=== PATIENT | female | born 1980 | race Caucasian/White ===

== ENCOUNTER 2017-07-22 17:11 | Emergency (ER) | payer MEDICARE, OTHER ==
[~2017-07-22] VITALS: Ht 165.1 cm; Wt 79.4 kg
[~2017-07-22 17:11] MED LIST: LEVE100020 PO; LORA2TAB89 PO
--- NOTE | 2017-07-22 17:35 | PHYS DOC ---
Past Medical History Past Medical History: Anxiety, Other Additional Past Medical Histor: epilepsy, panic attacks Past Surgical History: Tubal ligation, Other Additional Past Surgical Histo: shoulder surgery Alcohol Use: Occasionally Drug Use: Marijuana Adult General Chief Complaint Chief Complaint: RIB PAIN [facility] HPI Patient is a 36 year old female presents to the emergency department stating that she has having left lateral rib pain and discomfort. She states she has increased pain when taking a deep breath. She has not taken anything for pain or discomfort. She's had the pain for the last week. She states that she went to her primary care physician yesterday she states they did a urine on her which was positive for blood denies any urinary tract infection. Patient states that she has increased pain with taking a deep breath. She does not appear to be in any respiratory distress at the current time. Review of Systems Review of Systems Constitutional: Denies fever or chills [] Eyes: Denies change in visual acuity, redness, or eye pain [] HENT: Denies nasal congestion or sore throat [] Respiratory: Denies cough or shortness of breath. Complaint of left lateral rib pain. Cardiovascular: No additional information not addressed in HPI [] GI: Denies abdominal pain, nausea, vomiting, bloody stools or diarrhea [] : Denies dysuria or hematuria [] Musculoskeletal: Denies back pain or joint pain [] Integument: Denies rash or skin lesions [] Neurologic: Denies headache, focal weakness or sensory changes [] Endocrine: Denies polyuria or polydipsia [] Current Medications Current Medications Current Medications Medications (Trade) Dose Ordered Sig/Pia Start Time Stop Time Status Last Admin Dose Admin Fentanyl Citrate (Fentanyl 2ml Vial) 50 mcg PRN Q15MIN PRN 07/22/17 19:30 07/23/17 19:29 07/22/17 21:58 50 MCG Ibuprofen (Motrin) 800 mg 1X ONCE 07/22/17 18:00 07/22/17 18:01 DC 07/22/17 17:42 800 MG Info (Do NOT chart on this entry -- for MONITORING) 1 each PRN DAILY PRN 07/22/17 18:00 07/24/17 17:59 Iohexol (Omnipaque 300 Mg/ml) 75 ml 1X ONCE 07/22/17 18:30 07/22/17 18:31 DC 07/22/17 19:03 75 ML Levofloxacin/ Dextrose 100 ml @ 100 mls/hr 1X ONCE 07/22/17 19:45 07/22/17 20:44 DC 07/22/17 19:38 100 MLS/HR Allergies Allergies Allergies Coded Allergies Type Severity Reaction Last Updated Verified Penicillins Allergy Intermediate rash 02/21/14 Yes lorazepam Adverse Reaction Intermediate nausea 02/21/14 Yes Physical Exam Physical Exam Constitutional: Well developed, well nourished, no acute distress, non-toxic appearance. [] HENT: Normocephalic, atraumatic, bilateral external ears normal, oropharynx moist, no oral exudates, nose normal. [] Eyes: PERRLA, EOMI, conjunctiva normal, no discharge. [] Neck: Normal range of motion, no tenderness, supple, no stridor. [] Cardiovascular:Heart rate regular rhythm, no murmur [] Lungs & Thorax: Bilateral breath sounds clear to auscultation. No discoloration noted no step-offs noted in the rib area no crepitus is no deformities noted. Patient with equal chest expansion noted. Skin: Warm, dry, no erythema, no rash. [] Back: No tenderness, no CVA tenderness. [] Extremities: No tenderness, no cyanosis, no clubbing, ROM intact, no edema. [] Neurologic: Alert and oriented X 3, normal motor function, normal sensory function, no focal deficits noted. [] Psychologic: Affect normal, judgement normal, mood normal. [] Current Patient Data Vital Signs Vital Signs Date Time Temp Pulse Resp B/P (MAP) Pulse Ox O2 Delivery O2 Flow Rate FiO2 07/22/17 21:58 Room Air 07/22/17 21:53 64 18 127/71 (89) 95 07/22/17 17:39 98.2 98.2 Lab Values Laboratory Tests Test 07/22/17 17:20 07/22/17 17:23 07/22/17 18:03 Urine Collection Type Unknown Urine Color Yellow Urine Clarity Clear Urine pH 6.0 Urine Specific [place] <=1.005 Urine Protein Negative mg/dL (NEG-TRACE) Urine Glucose (UA) Negative mg/dL (NEG) Urine Ketones (Stick) Negative mg/dL (NEG) Urine Blood Negative (NEG) Urine Nitrite Negative (NEG) Urine Bilirubin Negative (NEG) Urine Urobilinogen Dipstick 0.2 mg/dL (0.2 mg/dL) Urine Leukocyte Esterase Negative (NEG) Urine RBC Rare /HPF (0-2) Urine WBC 0 /HPF (0-4) Urine Squamous Epithelial Cells Few /LPF Urine Bacteria 0 /HPF (0-FEW) Urine Yeast Present /HPF POC Urine HCG, Qualitative Hcg negative (Negative) White Blood Count 26.8 x10^3/uL (4.0-11.0) H Red Blood Count 4.85 x10^6/uL (3.50-5.40) Hemoglobin 14.5 g/dL (12.0-15.5) Hematocrit 43.0 % (36.0-47.0) Mean Corpuscular Volume 89 fL (79-100) Mean Corpuscular Hemoglobin 30 pg (25-35) Mean Corpuscular Hemoglobin Concent 34 g/dL (31-37) Red Cell Distribution Width 14.3 % (11.5-14.5) Platelet Count 433 x10^3/uL (140-400) H Neutrophils (%) (Auto) 86 % (31-73) H Lymphocytes (%) (Auto) 8 % (24-48) L Monocytes (%) (Auto) 5 % (0-9) Eosinophils (%) (Auto) 1 % (0-3) Basophils (%) (Auto) 1 % (0-3) Neutrophils # (Auto) 22.9 x10^3uL (1.8-7.7) H Lymphocytes # (Auto) 2.2 x10^3/uL (1.0-4.8) Monocytes # (Auto) 1.3 x10^3/uL (0.0-1.1) H Eosinophils # (Auto) 0.3 x10^3/uL (0.0-0.7) Basophils # (Auto) 0.1 x10^3/uL (0.0-0.2) Segmented Neutrophils % 79 % (35-66) H Band Neutrophils % 1 % (0-9) Lymphocytes % 7 % (24-48) L Atypical Lymphocytes % (Manual) 1 % (0-0) H Monocytes % 7 % (0-10) Eosinophils % 3 % (0-5) Basophils % 2 % (0-3) Platelet Estimate Increased (ADEQUATE) Sodium Level 139 mmol/L (136-145) Potassium Level 3.7 mmol/L (3.5-5.1) Chloride Level 103 mmol/L (98-107) Carbon Dioxide Level 26 mmol/L (21-32) Anion Gap 10 (6-14) Blood Urea Nitrogen 9 mg/dL (7-20) Creatinine 0.7 mg/dL (0.6-1.0) Estimated GFR (Cockcroft-Gault) 94.2 BUN/Creatinine Ratio 13 (6-20) Glucose Level 103 mg/dL (70-99) H Calcium Level 8.9 mg/dL (8.5-10.1) Total Bilirubin 0.1 mg/dL (0.2-1.0) L Aspartate Amino Transferase (AST) 15 U/L (15-37) Alanine Aminotransferase (ALT) 21 U/L (14-59) Alkaline Phosphatase 113 U/L (46-116) Total Protein 7.7 g/dL (6.4-8.2) Albumin 3.7 g/dL (3.4-5.0) Albumin/Globulin Ratio 0.9 (1.0-1.7) L Laboratory Tests 07/22/17 18:03 Laboratory Tests 07/22/17 18:03 EKG EKG [] Radiology/Procedures Radiology/Procedures [facility] [address] [address] IMAGING REPORT Signed PATIENT: ANDRA LARSEN ACCOUNT: [id number] : 1980 LOCATION: ER AGE: 36 SEX: F EXAM STATUS: REG ER ORD. PHYSICIAN: GILMA FOX APRN REASON: R/o PE, left chest pain with SOA PROCEDURE: CT ANGIOGRAPHY CHEST EXAM: CT angiography of the chest with intravenous contrast. HISTORY: Right-sided chest pain. TECHNIQUE: Computed tomographic images of the chest were obtained following the administration of 75 cc Omnipaque 300 intravenous contrast according to angiography protocol. Multiplanar reformatting was performed and 3-dimensional maximum intensity projection images were obtained. *One or more of the following individualized dose reduction techniques were utilized for this examination: 1. Automated exposure control. 2. Adjustment of the mA and/or kV according to patient size. 3. Use of iterative reconstruction technique. COMPARISON: None. FINDINGS: Evaluation for pulmonary embolism is significantly limited due to suboptimal contrast opacification of the pulmonary arteries. No central embolism is seen. However, the possibility of a segmental or subsegmental embolism is not excluded on this exam. The aorta is normal in caliber. There is a standard aortic arch branching pattern. There is soft tissue density within the anterior mediastinum likely due to residual thymus. No pathologically enlarged lymph node is seen. There is no pneumothorax. There is minimal apical predominant emphysema. There is bilateral lower lobe atelectasis or infiltrate with a trace left pleural effusion. There is lingular and right middle lobe atelectasis or scarring. The upper abdomen is unremarkable. There is no suspicious osseous lesion. There is a mild chronic appearing compression fracture with superior endplate Schmorl's node at T5. There are few additional chronic mild thoracic superior endplate depressions. IMPRESSION: 1. Limited evaluation for pulmonary embolism due to suboptimal contrast opacification of the pulmonary arteries. No central embolism is seen. 2. Bilateral lower lobe atelectasis or interstitial infiltrate with trace left pleural fluid. 3. Lingular and right middle lobe atelectasis or scarring. Electronically signed by: Lizzy Meadows MD (07/22/2017 7:06 PM) [facility] DICTATED and SIGNED BY: LIZZY MEADOWS MD DATE: 07/22/171902 CC: ZULMA NORTON; GILMA FOX APRN; NON,STAFF ~ []\ [facility] [address] [place] [address] IMAGING REPORT Signed PATIENT: ANDRA LARSEN ACCOUNT: [id number] : 1980 LOCATION: ER AGE: 36 SEX: F EXAM STATUS: REG ER ORD. PHYSICIAN: GILMA OFX APRN REASON: r/o PE , left rib pain SOA PROCEDURE: LUNG VENT/PERFUSION SCAN(VQ) EXAM: Pulmonary ventilation-perfusion scan. HISTORY: Chest pain. TECHNIQUE: Anterior projection ventilation images of the chest were obtained during the inhalation of 20 mCi Xe-133 gas. Anterior, posterior, bilateral oblique and bilateral lateral images of the chest were obtained following the administration of 5 mCi Tc-99m MAA. COMPARISON: Chest radiograph obtained on the same date. FINDINGS: The ventilation images demonstrate symmetric acute lesion appreciated within both lungs. There is no tracer retention. The perfusion images demonstrate no perfusion defect or ventilation-perfusion mismatch to suggest pulmonary embolus. IMPRESSION: Negative for pulmonary embolus. Electronically signed by: Lizzy Meadows MD (07/22/2017 9:59 PM) [facility] DICTATED and SIGNED BY: LIZZY MEADOWS MD DATE: 07/22/172157 CC: ZULMA NORTON; GILMA FOX APRN; NON,STAFF ~ Course & Med Decision Making Course & Med Decision Making Pertinent Labs and Imaging studies reviewed. (See chart for details) Spoke with Dr Castle in regards to ribs and chest x-ray he states she has fluid with fissure noted to the left lower lobe as well as stool noted in the upper abd. Patient has stated she has had diarrhea within the last 24 hours. Last normal BM 1 month ago. Perc score 0. [address] Castle regards to CT results. He is recommending a VQ scan at this time as the CT scan was unable to completely rule out a PE. He also recommended starting Levaquin due to the patient having an elevated white count. Spoke with the patient and provided her with results of the CT scan as well as having an elevated white count. She is being provided with pain medication fentanyl. She is also be providing the Levaquin as she was informed. Patient agrees with the treatment regimen at this time. 2225 VQ scan was negative for any DVTs. Patient was offered admission into the hospital with patient refusing. Patient will be discharged home on Levaquin with recommendations to follow-up with her primary care physician in the next 3- 5 days. Patient will also be encouraged to use ibuprofen and Tylenol for pain and discomfort warm moist packs to the chest wall area. Signs and symptoms to return back to emergency department as been provided. All questions and concerns been answered at patient's bedside. Patient agrees with discharge instructions, treatment regimens and follow-up recommendations. [] Dragon Disclaimer Dragon Disclaimer This electronic medical record was generated, in whole or in part, using a voice recognition dictation system. Departure Departure Impression: Primary Impression: CAP (community acquired pneumonia) Disposition: 01 HOME, SELF-CARE Condition: STABLE Referrals: ZULMA NORTON (PCP) Patient Instructions: Pneumonia, Adult, [id number] Additional Instructions: Activity as tolerated. Medications as prescribed. Tylenol or ibuprofen for pain and discomfort. Warm moist packs to the chest wall area. Drink plenty of fluids. Follow-up to primary care physician in the next 3-5 days. Return back to emergency prior signs symptoms of become worse. Scripts Levofloxacin (LEVAQUIN) 500 Mg Tablet 1 TAB PO DAILY, #7 TAB Prov: GILMA FOX APRN 07/22/17 Problem Qualifiers Primary Impression: CAP (community acquired pneumonia) Laterality: left Lung location: unspecified part of lung Qualified Codes: J18.9 - Pneumonia, unspecified organism GILMA FOX APRN Jul 22, 2017 17:35
[2017-07-22 17:52] LABS: BILIRUBIN,URINE NEGATIVE (NEG); GLUCOSE,URINE NEGATIVE (NEG); NITRITE,URINE NEGATIVE (NEG); PROTEIN,URINE NEGATIVE (NEG-TRACE); UROBILINOGEN,URINE 0.2 mg/dL (0.2 mg/dL)
[2017-07-22] MEDS ORDERED: CONTRAST GIVEN MC PRN (18:00)
[2017-07-22] MEDS ORDERED: IBUPROFEN 800 MG TABLET. PO ONE (18:00)
[2017-07-22 18:13] LABS: BACTERIA,URINE 0 /HPF (0-FEW); RBC,URINE RARE /HPF (0-2); SQUAMOUS EPITHELIAL CELL,UR FEW /LPF; WBC,URINE 0 /HPF (0-4); YEAST,URINE PRESENT /HPF
[2017-07-22] MEDS ORDERED: fentaNYL PF VIAL 100 MCG/2 ML VIAL IV ONE (18:15)
[2017-07-22 18:28] LABS: BASO # 0.1 x10^3/uL (0.0-0.2); BASO % 1 % (0-3); EOS % 1 % (0-3); HEMOGLOBIN 14.5 g/dL (12.0-15.5); LYMPH # 2.2 x10^3/uL (1.0-4.8); LYMPH % 8 % (24-48); MEAN CORPUSCULAR HEMOGLOBIN 30 pg (25-35); MEAN CORPUSCULAR HGB CONC 34 g/dL (31-37); MEAN CORPUSCULAR VOLUME 89 fL (79-100); MONO % 5 % (0-9); NEUT % 86 % (31-73); PLATELET COUNT 433 x10^3/uL (140-400); RED BLOOD COUNT 4.85 x10^6/uL (3.50-5.40); RED CELL DISTRIBUTION WIDTH 14.3 % (11.5-14.5); WHITE BLOOD COUNT 26.8 x10^3/uL (4.0-11.0)
[2017-07-22] MEDS ORDERED: IOHEXOL 300 MG/ML 75 ML VIAL IV ONE (18:30)
[2017-07-22 18:35] LABS: CALCIUM 8.9 mg/dL (8.5-10.1); CREATININE 0.7 mg/dL (0.6-1.0); GFR 94.2; POTASSIUM 3.7 mmol/L (3.5-5.1)
[2017-07-22 18:41] LABS: ALBUMIN 3.7 g/dL (3.4-5.0); ALBUMIN/GLOBULIN RATIO 0.9 (1.0-1.7); TOTAL BILIRUBIN 0.1 mg/dL (0.2-1.0); TOTAL PROTEIN 7.7 g/dL (6.4-8.2)
--- NOTE | 2017-07-22 19:09 | RAD ---
EXAM: CT angiography of the chest with intravenous contrast. HISTORY: Right-sided chest pain. TECHNIQUE: Computed tomographic images of the chest were obtained following the administration of 75 cc Omnipaque 300 intravenous contrast according to angiography protocol. Multiplanar reformatting was performed and 3-dimensional maximum intensity projection images were obtained. *One or more of the following individualized dose reduction techniques were utilized for this examination: 1. Automated exposure control. 2. Adjustment of the mA and/or kV according to patient size. 3. Use of iterative reconstruction technique. COMPARISON: None. FINDINGS: Evaluation for pulmonary embolism is significantly limited due to suboptimal contrast opacification of the pulmonary arteries. No central embolism is seen. However, the possibility of a segmental or subsegmental embolism is not excluded on this exam. The aorta is normal in caliber. There is a standard aortic arch branching pattern. There is soft tissue density within the anterior mediastinum likely due to residual thymus. No pathologically enlarged lymph node is seen. There is no pneumothorax. There is minimal apical predominant emphysema. There is bilateral lower lobe atelectasis or infiltrate with a trace left pleural effusion. There is lingular and right middle lobe atelectasis or scarring. The upper abdomen is unremarkable. There is no suspicious osseous lesion. There is a mild chronic appearing compression fracture with superior endplate Schmorl's node at T5. There are few additional chronic mild thoracic superior endplate depressions. IMPRESSION: 1. Limited evaluation for pulmonary embolism due to suboptimal contrast opacification of the pulmonary arteries. No central embolism is seen. 2. Bilateral lower lobe atelectasis or interstitial infiltrate with trace left pleural fluid. 3. Lingular and right middle lobe atelectasis or scarring. Electronically signed by: Lizzy Rosales MD (07/22/2017 7:06 PM) [place] [id number]
[2017-07-22 19:12] LABS: % BASOS 2 % (0-3); % EOS 3 % (0-5); PLT ESTIMATE INCREASED (ADEQUATE)
[2017-07-22] MEDS: fentaNYL PF VIAL 100 MCG/2 ML VIAL IV PRN ×2 (19:36→21:58)
--- NOTE | 2017-07-22 22:01 | RAD ---
EXAM: Pulmonary ventilation-perfusion scan. HISTORY: Chest pain. TECHNIQUE: Anterior projection ventilation images of the chest were obtained during the inhalation of 20 mCi Xe-133 gas. Anterior, posterior, bilateral oblique and bilateral lateral images of the chest were obtained following the administration of 5 mCi Tc-99m MAA. COMPARISON: Chest radiograph obtained on the same date. FINDINGS: The ventilation images demonstrate symmetric acute lesion appreciated within both lungs. There is no tracer retention. The perfusion images demonstrate no perfusion defect or ventilation-perfusion mismatch to suggest pulmonary embolus. IMPRESSION: Negative for pulmonary embolus. Electronically signed by: Lizzy Rosales MD (07/22/2017 9:59 PM) [facility]
[2017-07-22] MEDS ORDERED: LEVO500T59 PO (22:27)
[2017-07-22 22:29] VITALS: BP 98/62
--- NOTE | 2017-07-23 08:30 | RAD ---
KUB Clinical Indication: diarrhea recently no normal BM x 1 month Comparison: None. Findings: Moderate to large amount of colonic stool. No evidence of obstruction. No obvious free air. No abnormal calcifications. No acute osseous abnormality. IMPRESSION: Moderate to large amount of colonic stool. No evidence of obstruction.
--- NOTE | 2017-07-23 08:35 | RAD ---
RIBS LEFT AND PA CHEST Clinical Indication: left rib pain with radiation of pain Comparison: None. Findings: Low lung volume. Bibasilar atelectasis. Left lower lung zone linear opacity likely related to atelectasis versus scarring. No focal consolidation. Normal pulmonary vasculature. Apparent borderline cardiomegaly likely accentuated due to low lung volume and portable technique. The great vessels thorax are normal. No acute osseous abnormality. No displaced rib fracture. IMPRESSION: 1. Bibasilar atelectasis. No focal consolidation. 2. Apparent borderline cardiomegaly likely accentuated due to low lung volume and portable technique. 3. No displaced rib fracture.
== END 2017-07-22 22:35 | disposition home or self-care (01) ==
LOC: ER 17:11
DX: J18.9 Pneumonia, unspecified organism (principal); G40.909 Epilepsy, unspecified, not intractable, without status epilepticus; Z98.51 Tubal ligation status
CPT/HCPCS: 36415; 71101; 71275; 74000; 78582; 80053; 81001; 81025; 85007; 85025; 96365; 96374; 96375; 96376; 99285; A9540; A9558; J1956; J3010; Q9967

== ENCOUNTER 2021-04-07 00:41 | Emergency (ER) | payer MEDICAID, MEDICARE, OTHER ==
[~2021-04-07] VITALS: Ht 165.1 cm; Wt 59.1 kg
[~2021-04-07 00:41] MED LIST changes: +LEVO500T59 PO
[2021-04-07 01:04] LABS: BASO # 0.1 x10^3/uL (0.0-0.2); BASO % 1 % (0-3); EOS # 0.2 x10^3/uL (0.0-0.7); EOS % 2 % (0-3); HEMATOCRIT 38.7 % (36.0-47.0); HEMOGLOBIN 13.1 g/dL (12.0-15.5); LYMPH # 1.5 x10^3/uL (1.0-4.8); LYMPH % 13 % (24-48); MEAN CORPUSCULAR HEMOGLOBIN 30 pg (25-35); MEAN CORPUSCULAR HGB CONC 34 g/dL (31-37); MEAN CORPUSCULAR VOLUME 88 fL (79-100); MONO % 9 % (0-9); NEUT # 8.8 x10^3/uL (1.8-7.7); NEUT % 76 % (31-73); PLATELET COUNT 362 x10^3/uL (140-400); RED CELL DISTRIBUTION WIDTH 14.3 % (11.5-14.5); WHITE BLOOD COUNT 11.6 x10^3/uL (4.0-11.0)
[2021-04-07 01:18] LABS: CALCIUM 8.5 mg/dL (8.5-10.1); CREATININE 0.8 mg/dL (0.6-1.0); POTASSIUM 3.8 mmol/L (3.5-5.1)
[2021-04-07 01:21] LABS: ACETAMIN < 2 mcg/ml (10-30); ALBUMIN 3.4 g/dL (3.4-5.0); ETHANOL < 10 mg/dL (0-10); SALIC 5.7 mg/dL (2.8-20.0); TOTAL BILIRUBIN 0.4 mg/dL (0.2-1.0); TOTAL PROTEIN 6.7 g/dL (6.4-8.2)
[2021-04-07 01:29] LABS: BARBITURATES NEG (NEG); BENZODIAZEPINES POS (NEG); CANNABINOIDS POS (NEG); COCAINE NEG (NEG); METHADONE NEG (NEG); OPIATES NEG (NEG); PHENCYCLIDINE NEG (NEG)
[2021-04-07 01:30] LABS: AMPHETAMINE/METHAMPHETAMINE NEG (NEG)
--- NOTE | 2021-04-07 01:49 | PHYS DOC ---
Past Medical History Past Medical History: Anxiety, Kidney Stone, UTI, Other Additional Past Medical Histor: epilepsy, panic attacks, PTSD Past Surgical History: Tubal ligation, Other Additional Past Surgical Histo: shoulder surgery Smoking Status: Never Smoker Alcohol Use: Occasionally Drug Use: Marijuana General Adult EDM: Chief Complaint: SUICDAL IDEATION HPI: HPI: Patient is a 40 year old female with past medical history of anxiety depression and seizure disorder presents for evaluation after suicide attempt. Patient states due to recent buildup of stress related to living situation and illness of her grandfather she attempted suicide by overdose and cutting. Patient took a knife and cut her bilateral wrists and overdose her prescription Klonopin. Patient states around 2315 hrs. she took 15 to 20 tablets of her 1 mg Klonopin. Patient currently denies SI and HI. Patient states she was previously admitted to a psychiatric facility in 2004 after an attempted overdose on Ambien. Patient has lacerations bilateral wrist right wrist measures 6 cm left wrist measures 6 mm. Wound examined there does not appear to be any tendinous injury. Review of Systems: Review of Systems: Review of systems: Constitutional symptoms- No fever, no chills. Eyes- No Discharge, No Visual Loss Respiratory symptoms- No shortness of breath, No wheezing, No Dyspnea on Exertion Cardiovascular Systems; No chest pain, No Palpitations, No syncope Gastrointestinal symptoms: NO abdominal pain, no nausea, no vomiting or diarrhea. Genitourinary symptoms: No dysuria. Musculoskeletal symptoms: No back pain No extremity pain. NEUROLOGICAL Symptoms: No headache, no generalized weakness; No focal Weakness Skin: No rash. Positive laceration Psych denies suicidal ideation no homicidal ideation Heart Score: C/O Chest Pain: N/A Risk Factors: Risk Factors: DM, Current or recent (<one month) smoker, HTN, HLP, family history of CAD, obesity. Risk Scores: Score 0 - 3: 2.5% MACE over next 6 weeks - Discharge Home Score 4 - 6: 20.3% MACE over next 6 weeks - Admit for Clinical Observation Score 7 - 10: 72.7% MACE over next 6 weeks - Early Invasive Strategies Allergies: Allergies: Allergies Coded Allergies Type Severity Reaction Last Updated Verified Penicillins Allergy Intermediate rash 02/21/14 Yes lorazepam Adverse Reaction Intermediate nausea 02/21/14 Yes Physical Exam: PE: General: alert, no acute distress. Skin: warm, dry and intact. HENT: bilateral external ears normal, oropharynx moist, nose normal. Head:: Normocephalic, atraumatic. Neck: Trachea midline. Eyes: EOMI, Normal conjunctiva, No drainage CARDIOVASCULAR: Regular rate and rhythm RESPIRATORY: No respiratory distress Back: Full range of motion. Skin: Warm, dry, no erythema, no rash. Bilateral wrist laceration 6 cm in length longitudinal over wrist MUSCULOSKELETAL: Full range of motion of bilateral upper and lower extremities. GASTROINTESTINAL: Abdomen soft without rebound or guarding. NEUROLOGICAL: Alert and noted to person, place and time. No neurological deficits observed Psychiatric: Cooperative. Normal judgment currently denies HI or SI Current Patient Data: Labs: Laboratory Tests Test 04/07/21 00:58 04/07/21 01:15 04/07/21 01:17 White Blood Count 11.6 x10^3/uL (4.0-11.0) H Red Blood Count 4.40 x10^6/uL (3.50-5.40) Hemoglobin 13.1 g/dL (12.0-15.5) Hematocrit 38.7 % (36.0-47.0) Mean Corpuscular Volume 88 fL (79-100) Mean Corpuscular Hemoglobin 30 pg (25-35) Mean Corpuscular Hemoglobin Concent 34 g/dL (31-37) Red Cell Distribution Width 14.3 % (11.5-14.5) Platelet Count 362 x10^3/uL (140-400) Neutrophils (%) (Auto) 76 % (31-73) H Lymphocytes (%) (Auto) 13 % (24-48) L Monocytes (%) (Auto) 9 % (0-9) Eosinophils (%) (Auto) 2 % (0-3) Basophils (%) (Auto) 1 % (0-3) Neutrophils # (Auto) 8.8 x10^3/uL (1.8-7.7) H Lymphocytes # (Auto) 1.5 x10^3/uL (1.0-4.8) Monocytes # (Auto) 1.0 x10^3/uL (0.0-1.1) Eosinophils # (Auto) 0.2 x10^3/uL (0.0-0.7) Basophils # (Auto) 0.1 x10^3/uL (0.0-0.2) Sodium Level 137 mmol/L (136-145) Potassium Level 3.8 mmol/L (3.5-5.1) Chloride Level 102 mmol/L (98-107) Carbon Dioxide Level 26 mmol/L (21-32) Anion Gap 9 (6-14) Blood Urea Nitrogen 13 mg/dL (7-20) Creatinine 0.8 mg/dL (0.6-1.0) Estimated GFR (Cockcroft-Gault) 79.0 BUN/Creatinine Ratio 16 (6-20) Glucose Level 92 mg/dL (70-99) Calcium Level 8.5 mg/dL (8.5-10.1) Total Bilirubin 0.4 mg/dL (0.2-1.0) Aspartate Amino Transferase (AST) 16 U/L (15-37) Alanine Aminotransferase (ALT) 16 U/L (14-59) Alkaline Phosphatase 92 U/L (46-116) Total Protein 6.7 g/dL (6.4-8.2) Albumin 3.4 g/dL (3.4-5.0) Albumin/Globulin Ratio 1.0 (1.0-1.7) Salicylates Level 5.7 mg/dL (2.8-20.0) Salicylate Last Dose Date Unk Salicylate Last Dose Time Unk Acetaminophen Level < 2 mcg/ml (10-30) L Acetaminophen Last Dose Date Unk Acetaminophen Last Dose Time Unk Ethyl Alcohol Level < 10 mg/dL (0-10) Urine Opiates Screen Neg (NEG) Urine Methadone Screen Neg (NEG) Urine Barbiturates Neg (NEG) Urine Phencyclidine Screen Neg (NEG) Urine Amphetamine/Methamphetamine Neg (NEG) Urine Benzodiazepines Screen Pos (NEG) Urine Cocaine Screen Neg (NEG) Urine Cannabinoids Screen Pos (NEG) Urine Ethyl Alcohol Neg (NEG) POC Urine HCG, Qualitative Hcg negative (Negative) Laboratory Tests 04/07/21 00:58 Laboratory Tests 04/07/21 00:58 Vital Signs: Vital Signs Date Time Temp Pulse Resp B/P (MAP) Pulse Ox O2 Delivery O2 Flow Rate FiO2 04/07/21 01:23 98.5 16 107/62 (77) 99 Room Air 98.5 04/07/21 00:41 75 EKG: EKG: [] Radiology/Procedures: Radiology/Procedures: [] Course & Med Decision Making: Course & Med Decision Making Pertinent Labs and Imaging studies reviewed. (See chart for details) Procedure- Local anesthesia of bilateral wrist with let and 5 cc 1% lidocaine. Right wrist laceration 6 cm in length Wound explored no foreign bodies identified no active bleeding no tendon involvement 8 simple interrupted 6.0 nylon sutures placed no complications Left wrist laceration 6 cm in length Wound explored no foreign bodies identified no active bleeding no tendon involvement 8 simple interrupted 6.0 nylon sutures placed no complications Patient received Percocet for pain. Tetanus was updated. [] Patient was evaluated by PAT team. Patient is remorseful she currently denies any homicidal or suicidal ideations. Recommendation for discharge home with care plan. I am agreeable to this plan. Patient seems remorseful. Patient calm and cooperative. Dragon Disclaimer: Abraham Disclaimer: This electronic medical record was generated, in whole or in part, using a voice recognition dictation system. Departure Departure Impression: Primary Impression: Suicide attempt by cutting of wrist Additional Impressions: Suicide attempt by benzodiazepine overdose Laceration Disposition: 01 HOME / SELF CARE / HOMELESS Condition: STABLE Referrals: ZULMA NORTON (PCP) Patient Instructions: Depression, Adult, Laceration Care, Adult, Suicidal Feelings, How to Help Yourself Scripts Tramadol Hcl (ULTRAM) 50 Mg Tablet 1 TAB PO PRN Q6HRS PRN for pain MDD 4 Tablet(s) for 7 Days, #28 TAB 0 Refills Prov: RENETTA GARZA I DO 04/07/21 RENETTA GARZA I DO Apr 07, 2021 01:49
[2021-04-07] MEDS: LIDOCAINE/EPI/TETRACAINE TOPICAL GEL 3 ML. TP ONE (02:20)
[2021-04-07] MEDS: ONDANSETRON PF 4 MG/2 ML VIAL. IVP ONE (02:20)
[2021-04-07] MEDS: NICOTINE 21MG PATCH. TD SCH (02:20)
[2021-04-07] MEDS: LIDOCAINE 1% Multi-Dose 20 ML VIAL. INJ ONE (02:21)
[2021-04-07] MEDS ORDERED: FUROSEMIDE 40 MG/4 ML VIAL. IVP ONE (03:15)
[2021-04-07 04:28] VITALS: BP 94/59
[2021-04-07] MEDS: oxyCODONE/APAP 5/325 1 TAB TABLET PO ONE (05:04)
[2021-04-07] MEDS: DIPH,PERTUSS(ACELL),TET VAC/PF 0.5 ML SYRINGE. VAX IM ONE (05:06)
[2021-04-07] MEDS ORDERED: TRAM-48 PO (05:51)
== END 2021-04-07 05:55 | disposition home or self-care (01) ==
LOC: ER 00:41
DX: S61.512A Laceration without foreign body of left wrist, initial encounter (principal); Z20.822 Contact with and (suspected) exposure to COVID-19; S61.511A Laceration without foreign body of right wrist, initial encounter; G40.909 Epilepsy, unspecified, not intractable, without status epilepticus; F43.10 Post-traumatic stress disorder, unspecified; X78.1XXA Intentional self-harm by knife, initial encounter; Y93.89 Activity, other specified; Y92.89 Other specified places as the place of occurrence of the external cause; Y99.8 Other external cause status
CPT/HCPCS: 12004; 36415; 80053; 80307; 80329; 81025; 85025; 87426; 90471; 90715; 96374; 99285; G0480; J2405; J3490; U0003; U0005

== ENCOUNTER 2021-04-07 14:00 | Emergency (ER) | payer MEDICAID ==
[~2021-04-07] VITALS: Ht 165.1 cm; Wt 61.1 kg
[~2021-04-07 14:00] MED LIST changes: +TRAM-48 PO
[2021-04-07 17:30] VITALS: BP 114/72
--- NOTE | 2021-04-07 17:50 | PHYS DOC ---
Past Medical History Past Medical History: Anxiety, Kidney Stone, UTI, Other Additional Past Medical Histor: epilepsy, panic attacks, PTSD Past Surgical History: Tubal ligation, Other Additional Past Surgical Histo: shoulder surgery Smoking Status: Current Every Day Smoker Alcohol Use: None Drug Use: Marijuana General Adult EDM: Chief Complaint: WOUND CHECK HPI: HPI: Patient is a 40 year old female who presents with was here last night after she cut both of her wrists. She states that she woke up and they were oozing blood still.. She denies any pain or new injury. She has a history of anxiety, PTSD, panic attack, UTI, kidney stone, smoker, shoulder surgery. Denies any pain. Review of Systems: Review of Systems: Constitutional: Denies fever or chills. [] Eyes: Denies change in visual acuity. [] HENT: Denies nasal congestion or sore throat. [] Respiratory: Denies cough or shortness of breath. [] Cardiovascular: Denies chest pain or edema. [] GI: Denies abdominal pain, nausea, vomiting, bloody stools or diarrhea. [] : Denies dysuria. [] Musculoskeletal: Denies back pain or joint pain. [] Integument: Denies rash. +Oozing from wrist. [] Neurologic: Denies headache, focal weakness or sensory changes. [] Endocrine: Denies polyuria or polydipsia. [] Lymphatic: Denies swollen glands. [] Psychiatric: Denies depression or anxiety. [] Heart Score: C/O Chest Pain: No Risk Factors: Risk Factors: DM, Current or recent (<one month) smoker, HTN, HLP, family history of CAD, obesity. Risk Scores: Score 0 - 3: 2.5% MACE over next 6 weeks - Discharge Home Score 4 - 6: 20.3% MACE over next 6 weeks - Admit for Clinical Observation Score 7 - 10: 72.7% MACE over next 6 weeks - Early Invasive Strategies Allergies: Allergies: Allergies Coded Allergies Type Severity Reaction Last Updated Verified Penicillins Allergy Intermediate rash 02/21/14 Yes lorazepam Adverse Reaction Intermediate nausea 02/21/14 Yes Physical Exam: PE: Constitutional: Well developed, well nourished, no acute distress, non-toxic appearance. [] HENT: Normocephalic, atraumatic, bilateral external ears normal, oropharynx moist, no oral exudates, nose normal. [] Eyes: PERRLA, EOMI, conjunctiva normal, no discharge. [] Neck: Normal range of motion, no tenderness, supple, no stridor. [] Cardiovascular:Heart rate regular rhythm, no murmur [] Lungs & Thorax: Bilateral breath sounds clear to auscultation [] Abdomen: Bowel sounds normal, soft, no tenderness, no masses, no pulsatile masses. [] Skin: Warm, dry, no erythema, no rash. Blood oozing from bilateral wrist lacerations. [] Back: No tenderness, no CVA tenderness. [] Extremities: No tenderness, no cyanosis, no clubbing, ROM intact, no edema. [] Neurologic: Alert and oriented X 3, normal motor function, normal sensory function, no focal deficits noted. [] Psychologic: Affect normal, judgement normal, mood normal. [] EKG: EKG: [] Radiology/Procedures: Radiology/Procedures: [] Course & Med Decision Making: Course & Med Decision Making Pertinent Labs and Imaging studies reviewed. (See chart for details) See HPI. Alert and oriented x4. Ambulatory steady gait. Skin skin pink warm and dry. Radial pulses strong present. Full range of motion of bilateral wrists. Sutures are intact and edges are approximated. Cap refill less than 2 seconds. No swelling. There is scant blood bilateral bandages. I placed a nonadhesive dressing over each 1 after I cleaned it with chlorhexidine. I then put a sticker gauze pad over them bilaterally and then wrapped them with Kerlix. [] Abraham Disclaimer: Abraham Disclaimer: This electronic medical record was generated, in whole or in part, using a voice recognition dictation system. Departure Departure Impression: Primary Impression: Bleeding from wound Disposition: HOME / SELF CARE / HOMELESS Condition: STABLE Referrals: NO PCP (PCP) Patient Instructions: Sutured Wound Care Additional Instructions: Follow-up with primary care provider. Sutures should be removed in 10 days. Watch for signs of infection. GILMA KEY APRN Apr 07, 2021 17:50
== END 2021-04-07 17:30 | disposition home or self-care (01) ==
LOC: ER 14:00
DX: S61.512A Laceration without foreign body of left wrist, initial encounter (principal); S61.511A Laceration without foreign body of right wrist, initial encounter; F17.200 Nicotine dependence, unspecified, uncomplicated; G40.909 Epilepsy, unspecified, not intractable, without status epilepticus; Z88.0 Allergy status to penicillin; Z88.8 Allergy status to other drugs, medicaments and biological substances; Y28.8XXA Contact with other sharp object, undetermined intent, initial encounter; Y93.89 Activity, other specified; Y92.89 Other specified places as the place of occurrence of the external cause; Y99.8 Other external cause status
CPT/HCPCS: 29125; 99283

== ENCOUNTER 2021-04-19 10:26 | Emergency (ER) | payer MEDICAID ==
[~2021-04-19] VITALS: Ht 165.1 cm; Wt 62.0 kg
[2021-04-19 10:30] VITALS: BP 106/72
[2021-04-19] MEDS ORDERED: ONDANSETRON ODT 4 MG TAB.RAPDIS. PO ONE (11:00)
[2021-04-19] MEDS ORDERED: traMADol 50 MG TABLET PO ONE (11:15)
--- NOTE | 2021-04-19 11:21 | ED.ADGEN ---
Past Medical History Past Medical History: Anxiety, Kidney Stone, UTI, Other Additional Past Medical Histor: epilepsy, panic attacks, PTSD Past Surgical History: Tubal ligation, Other Additional Past Surgical Histo: shoulder surgery Smoking Status: Current Every Day Smoker Alcohol Use: None Drug Use: Marijuana General Adult EDM: Chief Complaint: SUTURE/STAPLE REMOVAL HPI: HPI: Patient is a 40 year old female who presents to the emergency department with request for suture removal. Patient was seen here on April [id number] after a suicide attempt. Patient had cut both of her wrists with a knife. Patient reports that several of the sutures came out while she was in rehab. She denies any further suicidal ideations. She denies any fever, she states that when she put peroxide on the wounds that there was some white drainage. She denies any bleeding,. Denies any loss of sensation, decreased range of motion, or warmth. She reports she has been taking ibuprofen at home with little relief of her pain. She requests a tablet of tramadol that she can go home and finished cleaning up the body mass that she had made when she cut herself. Patient st ates she was just discharged from the psychiatric facility and is doing much better. Review of Systems: Review of Systems: Complete ROS is negative unless otherwise noted in HPI. Current Medications: Current Medications Medications (Trade) Dose Ordered Sig/Pia Start Time Stop Time Status Last Admin Dose Admin Ondansetron HCl (Zofran Odt) 4 mg 1X ONCE 04/19/21 11:00 04/19/21 11:01 04/19/21 10:55 4 MG Allergies: Allergies: Allergies Coded Allergies Type Severity Reaction Last Updated Verified Penicillins Allergy Intermediate rash 02/21/14 Yes lorazepam Adverse Reaction Intermediate nausea 02/21/14 Yes Physical Exam: PE: See Above Constitutional: Well developed, well nourished, no acute distress, non-toxic appearance. [] HENT: Normocephalic, atraumatic, bilateral external ears normal, nose normal. [] Eyes: PERRLA, EOMI, conjunctiva normal, no discharge. [] Neck: Normal range of motion, no stridor. [] Cardiovascular:Heart rate regular rhythm Lungs & Thorax: Respirations even and unlabored, no retractions, no respiratory distress Skin: Warm, dry, no erythema, no rash; healing lacerations with well approximated edges to bilateral wrists, with multiple missing sutures, moderate crusting to the wound on the left wrist without erythema, warmth, or purulent drainage [] Extremities: No cyanosis, ROM intact, no edema. [] Neurologic: Alert and oriented X 3, no focal deficits noted. [] Psychologic: Affect normal, judgement normal, mood normal. [] Current Patient Data: Vital Signs: Vital Signs Date Time Temp Pulse Resp B/P (MAP) Pulse Ox O2 Delivery O2 Flow Rate FiO2 04/19/21 10:30 97.7 85 12 106/72 (71) 97 Room Air 97.7 EKG: EKG: [] Heart Score: C/O Chest Pain: No Radiology/Procedures: Radiology/Procedures: Remaining sutures removed from bilateral wrist lacerations, no purulent drainage or bleeding from either laceration site, there was a small 1.5 cm area of slight wound dehiscence to the left wrist without drainage or bleeding. Steri- Strips were applied to the affected area by myself. Course & Med Decision Making: Course & Med Decision Making Pertinent Labs and Imaging studies reviewed. (See chart for details) [] Dragon Disclaimer: Dragon Disclaimer: This electronic medical record was generated, in whole or in part, using a voice recognition dictation system. Departure Departure Impression: Primary Impression: Encounter for removal of sutures Disposition: 01 HOME / SELF CARE / HOMELESS Condition: STABLE Referrals: NO PCP (PCP) Patient Instructions: Sterile Tape Wound Closure, Suture Removal-Brief Additional Instructions: May take Tylenol or ibuprofen as needed for pain. Follow-up primary care doctor as needed. Return to the ER if symptoms worsen or fever develops. JUDITH GARRETT MALLET CUTTER Apr 19, 2021 11:21
== END 2021-04-19 11:32 | disposition home or self-care (01) ==
LOC: ER 10:26
DX: S61.512D Laceration without foreign body of left wrist, subsequent encounter (principal); S61.511D Laceration without foreign body of right wrist, subsequent encounter; G40.909 Epilepsy, unspecified, not intractable, without status epilepticus; F17.200 Nicotine dependence, unspecified, uncomplicated; W26.0XXA Contact with knife, initial encounter; Y93.89 Activity, other specified; Y92.89 Other specified places as the place of occurrence of the external cause; Y99.8 Other external cause status
CPT/HCPCS: 99283